=== PATIENT | female | born 1990 | race Caucasian/White ===

== ENCOUNTER 2017-04-04 21:09 | Emergency (ER) | payer MEDICAID ==
[2017-04-04 21:34] VITALS: BP 136/96
== END 2017-04-04 23:10 | disposition left against medical advice (07) ==
LOC: ER 21:09
DX: Z53.21 Procedure and treatment not carried out due to patient leaving prior to being seen by health care provider (principal)

== ENCOUNTER 2018-07-28 19:56 | Emergency (ER) | payer MEDICAID ==
[2018-07-28] MEDS ORDERED: KETOROLAC TROMETHAMINE 60 MG/2 ML SDV IM ONE (21:32)
[2018-07-28] MEDS ORDERED: ACETAMINOPHEN 325 MG TABLET PO ONE (21:32)
[2018-07-28] MEDS ORDERED: MORPHINE SULFATE IR 15 MG TABLET PO ONE ×2 (21:32→21:33)
--- NOTE | 2018-07-28 21:37 | ER Document Report ---
ED General - General Chief Complaint: Ear Pain Stated Complaint: TOOTH PAIN/RIGHT EAR PAIN Time Seen by Provider: 07/28/18 20:19 Notes: Patient is a 28-year-old female without chronic medical problems who presents with 3 days of progressively worsening right upper posterior molar pain radiating to her right ear. She does describe this as a severe, stabbing, shooting pain in the right upper posterior molar radiating into the ear. She was seen by dentist earlier today, started on antibiotics and hydrocodone, scheduled for tooth removal next week. She states that she is coming to the emergency department because the hydrocodone is not helping and that her pain has become completely unbearable. She states any attempt to eating or drinking worsens the pain. Denies fever, difficulty breathing or swallowing. No significant facial swelling. No history of similar symptoms in the past. TRAVEL OUTSIDE OF THE [place] IN LAST 30 DAYS: No - Related Data Allergies/Adverse Reactions: methylphenidate HCl [From Ritalin] Allergy (Verified 08/05/15 12:24) Past Medical History - General Information source: Patient - Social History Smoking Status: Never Smoker Frequency of alcohol use: None Drug Abuse: None Lives with: Family Family History: Reviewed & Not Pertinent Patient has suicidal ideation: No Patient has homicidal ideation: No Pulmonary Medical History: Reports: Hx Asthma Renal/ Medical History: Denies: Hx Peritoneal Dialysis Psychiatric Medical History: Reports: Hx Attention Deficit Hyperactivity Disorder - Immunizations Hx Diphtheria, Pertussis, Tetanus Vaccination: Yes Review of Systems - Review of Systems Notes: Constitutional: Negative for fever. HENT: Positive for dental pain and right ear pain Eyes: Negative for visual changes. Cardiovascular: Negative for chest pain. Respiratory: Negative for shortness of breath. Gastrointestinal: Negative for abdominal pain, vomiting or diarrhea. Genitourinary: Negative for dysuria. Musculoskeletal: Negative for back pain. Skin: Negative for rash. Neurological: Negative for headaches, weakness or numbness. 10 point ROS negative except as marked above and in HPI. Physical Exam - Vital signs Vitals: Temp Pulse Resp BP Pulse Ox 98.4 F 86 18 138/86 H 96 07/28/18 20:03 07/28/18 20:03 07/28/18 20:03 07/28/18 20:03 07/28/18 20:03 Interpretation: Normal Notes: PHYSICAL EXAMINATION: GENERAL: Appears uncomfortable, tearful HEAD: Atraumatic, normocephalic. EYES: Pupils equal round and reactive to light, extraocular movements intact, sclera anicteric, conjunctiva are normal. ENT: nares patent, oropharynx clear without exudates. Diffusely poor dentition , cracked tooth #2 with exposure of the dentin NECK: Normal range of motion, supple without lymphadenopathy LUNGS: Breath sounds clear to auscultation bilaterally and equal. No wheezes rales or rhonchi. HEART: Regular rate and rhythm without murmurs ABDOMEN: Soft, nontender, normoactive bowel sounds. No guarding, no rebound. No masses appreciated. EXTREMITIES: Normal range of motion, no pitting or edema. No cyanosis. NEUROLOGICAL: No focal neurological deficits. Moves all extremities spontaneously and on command. PSYCH: Moderately anxious SKIN: Warm, Dry, normal turgor, no rashes or lesions noted. Course - Re-evaluation Re-evalutation: 07/28/18 21:34 Presentation is most consistent with likely an infected tooth. Airway is patent. Vitals within normal limits. Patient is able swallow without any difficulty. There is no significant facial swelling. No evidence of Cuco angina, apical abscess, or airway obstruction. Patient will be started on antibiotics. I've instructed to follow-up with dentistry as earliest ability for definitive management. The patient did appear to be in substantial pain here in the emergency department and has exposure of the nerve root of the tooth #2. The patient did bring with her a hydrocodone bottle that contained all but 3 of the pills that have been prescribed earlier today. The patient accurately reported that she had only taken 3 of the pills and that they were not effective. She is requesting a different pain medication. I agreed to provide her oral morphine in exchange for the pill bottle containing all of the hydrocodone for disposal here in the emergency department. 22 pills of hydrocodone 5-325 were disposed. Gayatri Ramsey RN witnessed disposal of this medication. At this time will discharge with return precautions and follow-up recommendations. Verbal discharge instructions given a the bedside and opportunity for questions given. Medication warnings reviewed. Patient is in agreement with this plan and has verbalized understanding of return precautions and the need for primary care follow-up in the next 24-72 hours. - Vital Signs Vital signs: Temp Pulse Resp BP Pulse Ox 98.3 F 88 18 135/78 H 98 07/28/18 22:10 07/28/18 22:10 07/28/18 22:10 07/28/18 22:10 07/28/18 22:10 Discharge - Discharge Clinical Impression: Pain, dental, Right ear pain Condition: Good Disposition: HOME, SELF-CARE Additional Instructions: You have been seen for dental pain. It is very important that you follow-up with a dentist for definitive care. Please return if you develop fever greater than 101, swelling in your face, vomiting, difficulty breathing or swallowing, or any other symptoms that are concerning to you. For your pain: Take ibuprofen 600 mg and acetaminophen 1000 mg every 6 hours together as needed for pain. If this does not control your pain you may take 15 mg of oral morphine every 4 hours as needed. Please be very careful about using the oral morphine and only use this for severe pain. Prescriptions: Morphine Sulfate [Morphine Ir 15 mg Tablet] 15 mg PO TID #12 tablet Forms: Special Work Note
[2018-07-28 22:16] VITALS: BP 135/78
== END 2018-07-28 22:16 | disposition home or self-care (01) ==
LOC: ER 19:56
DX: K08.89 Other specified disorders of teeth and supporting structures (principal); H92.01 Otalgia, right ear; J45.909 Unspecified asthma, uncomplicated
CPT/HCPCS: 99283; 96372; J3490; J1885

== ENCOUNTER 2019-09-13 15:26 | Emergency (ER) | payer MEDICAID ==
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
[2019-09-13 19:31] VITALS: BP 155/89
== END 2019-09-13 19:31 | disposition home or self-care (01) ==
LOC: ER 15:26
DX: S06.0X0A Concussion without loss of consciousness, initial encounter (principal); S20.211A Contusion of right front wall of thorax, initial encounter; S20.411A Abrasion of right back wall of thorax, initial encounter; M25.552 Pain in left hip; Y04.2XXA Assault by strike against or bumped into by another person, initial encounter; Y92.009 Unspecified place in unspecified non-institutional (private) residence as the place of occurrence of the external cause
CPT/HCPCS: 70450; 71046; 99284